=== PATIENT | male | born 1950 | race Caucasian/White ===

== ENCOUNTER 2017-07-29 01:26 | Inpatient (IN) | payer OTHER ==
[~2017-07-29] VITALS: Ht 182.9 cm; Wt 110.8 kg
[~2017-07-29 01:26] MED LIST: ATORVASTATIN CA20 M1 PO; LISINOPRIL-HCT1 EAC2 PO; METFORMIN HCL500 M3 PO
--- NOTE | 2017-07-29 09:52 | Operative Report ---
Operative/Inv Procedure Report Surgery Date: 07/29/17 Name of Procedure: Left total knee arthroplasty Pre-Operative Diagnosis: Primary osteoarthritis left knee Post-Operative Diagnosis: Same Estimated Blood Loss: less than 50ml Surgeon/Procedure Manager: Erwin CARRILLO,Sarthak Winters PAC Anesthesia: general endotracheal tube IV Fluids: See anesthesia record Implants: Striker triathlon posterior stabilize knee. Size 6 femur, size 6 tibia, 9 mm polyethylene insert and a 36 patellar button Drains: None Specimens: Bone to pathology Tourniquet: 50 minutes Complications: None Condition: Stable Operative Indication: Patient is a 59-year-old male with severe degenerative changes and osteoarthritis of the left knee. He has failed conservative treatment is indicated for left total knee arthroplasty. A skilled set hands was necessary provided by physician dental ceramist assistant Arthur Winters weighted with component assembly limb positioning and traction as well as retraction throughout the case. Operative/Procedure Note Note: Once informed consent was obtained and the correct limb was identified the patient brought to operative room placed on table supine position. After administration of general endotracheal anesthesia patient had a Hedrick catheter placed, thigh tourniquet placed and the left lower extremity is prepped and draped in usual sterile fashion. To begin the procedure standard midline incision was made for left total knee arthroplasty. Sharp dissection was carried down through the skin and subcutaneous tissue. A medial parapatellar arthrotomy was performed and the patella was everted and the fat pad is removed from the patellar tendon. Patellar thickness was measured to be 26 mm and 10 mm of bone was resected off the patella. Patella was then measured to be a 36 symmetric patella. The jig for the 36 patella was placed onto the patella and the lug holes were drilled. Patella was then retracted laterally and protected and Z retractors were placed to protect the collateral ligaments. Step drill was used to enter the intramedullary canal the femur. Distal femoral cutting guide was placed with a cut set for 10 of resection off the distal femur and a 6 valgus cut. Distal femoral cut was made without complication bone was passed off as specimen to pathology. The femur was then sized to be a size 6 femur. A size 6 4-in-1 cutting block was placed in the distal femur and the anterior, posterior and chamfer cuts were made without, patient. The box cut guide was then placed for size 6 femur and the box cut for posterior stabilized knee was performed. At this point the lateral medial menisci were resected sharply with a number #10 blade. Using a curved osteotome and curved curettes posterior osteophytes removed off the posterior femoral condyles. A Church elevator was then used to used to release some the posterior capsule due to the flexion contracture preoperatively. Attention was then turned to the tibial cut. Intramedullary canal was entered with a step drill and the intramedullary canal cutting guide was placed. 4 mm of bone was taken off the medial side or the affected side of the knee. This was passed off as specimen. The tibia sized to be a size 6 tibial tray. Reduction was done with a 6 tibial tray and a 6 femur and a 9 mm polyethylene trial insert. The knee had full extension and 110 of flexion. It was stable to varus and valgus stress at 0 and 60 with no mid flexion instability. The patella tracked nicely. Rotation of the tibial component was marked and the components removed. The tibial component was pinned in placed and the keel cut was made. At this point all components removed and the knee was pulse lavaged. The cement was mixed on the back table. The total knee components were then cemented in place with the tibial component cemented first followed by the femoral component and the patellar button. All excess cement was removed with curettes. A 9 mm trial insert was placed on the tibial tray and the knee was placed in full extension while the cement hardened. Once the cement hardened the knee was again taken through range of motion found to be stable with full extension. A 9 mm polyethylene insert was opened and locked onto the tibial tray. The tourniquet was released and the knee was pulse lavaged with sterile saline. Bleeding was stopped with electrocautery. The arthrotomy was then closed with #1 Vicryl interrupted sutures. The subcutaneous tissues were closed with #1 Vicryl and 2-0 Vicryl interrupted sutures. Skin was closed vero and a sterile dressing was applied. Patient was awakened and taken recovery in stable condition.
--- NOTE | 2017-07-29 12:24 | Cons- Medical ---
Joshua CARRILLO,Lola 07/29/17 1223: General Information and HPI Consulting Request Date of Consult: 07/22/17 Requested By: Erwin CARRILLO,Sarthak Hyde Reason for Consult: Post Op Source of Information: patient, family, old records Exam Limitations: no limitations History of Present Illness: Mr. Trinh is a 67-year-old gentleman with past medical history of hyperlipidemia, hisotry of severe osteoarthritis, esssential hypertension, questionable history of diabetes (with borderline elevated blood sugars) who was seen in PACU on 07/29 after undergoing left knee arthroplasty. During the time of our clinical interaction the patient was alert and oriented 3. He was able to answer questions appropriately and states that he was in no acute pain. States that he has been compliant on medications. Routinely follows up with his primary care physician Dr. Rose. He denies any changes to recent medications. States that his primary care physician as kept him on metformin 500 mg twice a day for questionable diagnosis of diabetes. At the time of our clinical interaction he denied any fever, chills, nausea, vomiting. He was pain-free and felt slightly lethargic owing to anesthesia. Unsure about any drug allergies stating that he may have had an adverse reaction to an anodyne medication although he is unable to mention which ones. He experienced GI Upset. Allergies/Medications Allergies: Uncoded Allergies: ? PAIN MED (VOMITING 07/13/17) Home Med List: Apixaban (Eliquis) 2.5 MG TABLET 2.5 MG PO BID dvt ppx Atorvastatin Calcium 20 MG TABLET 1 TAB PO DAILY CHOLESTEROL (Reported) Lisinopril/Hydrochlorothiazide (Lisinopril-Hctz 10-12.5 MG Tab) 10 MG-12.5 MG TABLET 1 TAB PO DAILY BP (Reported) Metformin HCl 500 MG TABLET 1 TAB PO BID DIABETES (Reported) Oxycodone HCl/Acetaminophen (Percocet 5-325 MG Tablet) 5 MG-325 MG TABLET 1-2 TAB PO Q4P PRN PAIN SCALE Current Medications: Current Medications Sig/Arron Start time Last Medication Dose Route Stop Time Status Admin Acetaminophen 0 .STK-MED ONE 07/29 708 DC PO Acetaminophen 650 MG ONCE 07/29 NR PO 07/29 2358 Celecoxib 400 MG ONCE 07/29 NR PO 07/29 2358 Dexamethasone 0 .STK-MED ONE 04/11 0708 DC .ROUTE Dexamethasone 10 MG ONCE 07/29 0000 NR IV 07/29 2358 Gabapentin 0 .STK-MED ONE 07/29 0709 DC PO Gabapentin 300 MG ONCE 07/29 0000 NR PO 07/29 2358 Oxycodone HCl 10 MG ONCE 07/29 0000 NR PO 07/29 2358 Ropivacaine 500 ML ONCE ONE 07/29 0900 AC ON-Q Ball 1 BAG INJ 07/31 0239 Scopolamine HBr 0 .STK-MED ONE 07/29 07 DC TOP Scopolamine HBr 1 PAT ONCE 07/29 0000 NR TOP 07/29 2358 Vancomycin HCl 1,500 MG ONCE 07/29 0000 NR Sodium Chloride 250 ML IV 07/29 2358 Review of Systems Review of Systems Constitutional: Reports: see HPI. Past History Surgical History Surgical History: Right knee arthroplasty Family History Relations & Conditions If Any: SISTER (Hypertension). Psychosocial History Where Do You Live? Home Services at Home: None Smoking Status: Smoker Current Stat n ETOH Use: occasional use, Occasional Illicit Drug Use: denies illicit drug use Functional Ability ADLs Independent: dressing, eating, toileting, bathing. Ambulation: independent IADLs Independent: shopping, housework, finances, food prep, telephone, transportation , medication admin. Exam & Diagnostic Data Last 24 Hrs of Vital Signs/I&O BP 129/69. Heart rate 60 Physical Exam General Appearance: well developed/nourished, no apparent distress, alert Head: atraumatic Eyes: Bilateral: PERRL, EOMI. Ears, Nose, Throat: normal pharynx Neck: normal inspection Respiratory: normal breath sounds, chest non-tender, no respiratory distress Cardiovascular: regular rate/rhythm Gastrointestinal: normal bowel sounds, soft, non-tender Back: normal inspection Extremities: normal inspection, no edema, Right Knee Surgical Scar Neurologic/Psych: no motor/sensory deficits, awake, alert, oriented x 3, senior recruiter II- XII nml as tested Cranial Nerves: normal hearing, normal speech, PERRL Last 24 Hrs of Labs/Mathew: NA Diagnostic Data EKG Results Pre operative EKG showed NSR Assessment/Plan Assessment/Plan Mr. Trinh is a 67-year-old gentleman with past medical history of hyperlipidemia, hypertension, questionable history of diabetes (with borderline elevated blood sugars) who was seen in PACU on 07/29/2017 after undergoing left knee arthroplasty. He will be managed on the floor for postsurgical intervention. Hypertension Post Op BP stable. Plan: Continue Lisinopril/HCTZ combo pill. Goal pressure below 140/90. Monitor BP Glucose Intolerance Has been on Metrofmin. Last HbA1c 6.4, 07/06/17 Plan: Cover patient with NovoLog sliding scale. Keep blood sugar below 150. If sugars remain uncontrolled will may consider addition of Levemir. Consistent carbohydrate Diet Consistent carbohydrate Diet Hyperlipidemia Continue Atorvastatin 20 mg Incentive Spirometer Patient is a full code. DVT prophylaxis at all times Thank you for consultation request we will continue to follow with you. Problem List: 1. Unilateral primary osteoarthritis, left knee 2. Hypertension Copies To: Rose CARRILLO,Ahsok Donovan Consult Acknowledgment - Thank you for your consult request. Darwin Rebollar MD 07/29/17 7591: Assessment/Plan Consult Acknowledgment - Thank you for your consult request. Attending MD Review Statement Attending Statement Attending MD Statement: examined this patient, discuss w/resident/PA/RECREATION FACILITY MANAGER, agreed w/resident/PA/RECREATION FACILITY MANAGER, reviewed EMR data (avail), amended to note Attending Assessment/Plan: The patient is a 67 yo male with h/o HL, glucose intolerance, essential HTN and OA who presented for elective left TKR for OA. He had previously had a right TKR in past. At the time of my exam he was lying comfortably in the PACU. He stated his pain was under good control. Denied any chest pain, dyspnea, or nausea/ abdominal discomfort. Physical Exam: VS: BP 129/69, P 60 HEENT: eyes- PERRLA, EOMI pat- moist mucosa w/o lesions Neck: no JVD/bruits Chest: clear Cor: RRR nl S1, S2 w/o murm Abd: BS+, soft, NT Ext: s/p left TKR, pulses 2+, no edema Neuro: alert & oriented x 3, non-focal exam Impression/Plan: #S/P Left TKR- for OA- doing well post operatively. Plan: As per orthopedics. #Essential HTN- BP stable. Plan: Continue Lisinopril/HCTZ. #Glucose Intolerance- on Metformin as OP. Hgb A1C as above. Plan: Will follow glucoscans and insulin sliding scale. #Hyperlipidemia- on Atorvastatin. Plan: Continue Atorvastatin.
--- NOTE | 2017-07-29 13:44 | Admission Core Measures ---
Acute Coronary Syndrome (CM) ACS Core Measures Acute Coronary Syndrome Diagnosis No Congestive Heart Failure (NEW) CHF Core Measures Congestive Heart Failure Diagnosis No Cerebrovascular Accident (NEW) CVA Core Measures CVA/TIA Diagnosis No Venous Thromboembolism VTE Core Betina (View Protocol) VTE Risk Factors Surgery No Mechanical VTE Prophylaxis d/t N/A MechProphylax Ordered No VTE Pharm Prophylaxis d/t NA PharmProphylax ordered Problem List As ranked by this Provider includes Assessment & Plan 1. Unilateral primary osteoarthritis, left knee HOME MEDS Home Med List Atorvastatin Calcium 20 MG TABLET 1 TAB PO DAILY CHOLESTEROL (Reported) Lisinopril/Hydrochlorothiazide (Lisinopril-Hctz 10-12.5 MG Tab) 10 MG-12.5 MG TABLET 1 TAB PO DAILY BP (Reported) Metformin HCl 500 MG TABLET 1 TAB PO BID DIABETES (Reported)
--- NOTE | 2017-07-29 13:47 | Patient Discharge Instructions ---
Discharge Instructions General Discharge Information You were seen/treated for: Left knee pain related to unilateral primary osteoarthritis You had these procedures: Left total knee replacement Watch for these problems: Increasing pain despite the use of pain medication Increasing redness, warmth or swelling Drainage of any type from incision Inability to bear weight on operative leg Persistent nausea and vomiting Fever greater than 101.5 degrees Do not soak the wound: Yes No bath, but you may shower: Yes Other wound care: Please keep wound clean and dry. No ointments or lotions of any type on or near incision at any time. No exceptions. Your dressing will be changed by your nurse on the second day after your surgery. Daily dry dressing changes are recommended each day thereafter. Do not soak your wound in a bath at any time until otherwise indicated by your surgeon. You may shower, please dry wound immediately after shower with a clean towel. Diet Continue normal diet: Yes Recommended Diet: Regular Activity Full Activity/No Limits: No Activity Self Limited: Yes Pounds, do NOT lift more than: 10 Acute Coronary Syndrome Inclusion Criteria At DC or during hospital stay patient has or had the following: ACS DIAGNOSIS No Discharge Core Measures Meds if any: Prescribed or Continued at Discharge Meds if any: NOT Prescribed or Continued at Discharge Congestive Heart Failure Inclusion Criteria At DC or during hospital stay patient has or had the following: CHF DIAGNOSIS No Discharge Core Measures Meds if any: Prescribed or Continued at Discharge Meds if any: NOT Prescribed or Continued at Discharge Cerebrovascular accident Inclusion Criteria At DC or during hospital stay patient has or had the following: CVA/TIA Diagnosis No Discharge Core Measures Meds if any: Prescribed or Continued at Discharge Meds if any: NOT Prescribed or Continued at Discharge Venous thromboembolism Inclusion Criteria VTE Diagnosis No VTE Type NONE VTE Confirmed by (Test) NONE Discharge Core Measures - Per Current guidelines, there needs to be overlap - treatment for the first 5 days of Warfarin therapy. - If discharged on Warfarin prior to 5 days of - overlap therapy, the patient will need to be - assessed for post discharge needs including - *Post discharge parental anticoagulation - *Warfarin and/or parental anticoagulation education - *Follow up date to check INR post discharge At least 5 days overlap therapy as Inpatient No Meds if any: Prescribed or Continued at Discharge Note: Overlap Therapy is Warfarin and Anticoagulant Meds if any: NOT Prescribed or Continued at Discharge
--- NOTE | 2017-07-29 13:49 | Surgical Discharge Summary ---
Visit Information Visit Dates Admission Date: 07/29/17 Discharge Date: 07/30/17 History of Present Illness Chief Complaint: Left knee pain related to unilateral primary osteoarthritis Medical History Influenza Vaccine: 01/09/10 Surgical History Pertinent Surgical History: non-contributory Psychosocial History Who Do You Live With? Son Services at Home: None What is Your Primary Language? Beninese Review of Systems: See H&P Hospital Course Course Attending Physician: Erwin CARRILLO,Sarthak Hyde Primary Care Physician: Ashok Rose MD Hospital Course: Patient was admitted to the hospital for an elective total joint replacement. The procedure was tolerated well and patient was transferred to a general surgical floor. Diet was advanced and tolerated, and the patient voided spontaneously. The patient was evaluated and treated by physical therapy. At the time of hospital discharge, the vital signs were stable, neurovascular status was intact, and pain was controlled with the use of oral pain medications. Allergies: Uncoded Allergies: ? PAIN MED (VOMITING 07/13/17) Disposition Summary Disposition Principal Diagnosis: Left knee unilateral primary osteoarthritis Additional Diagnosis: SP L TKA Discharge Disposition: home health services Discharge Instructions General Discharge Information Code Status: Full Code Patient's Diet: Regular, advance as tolerated Patient's Activity: WBAT Follow-Up Instructions/Appts: Follow up with Dr. Hood in two weeks from date of surgery. Please call office to arrange/confirm this appointment Medications at Discharge Discharge Medications: Continue taking these medications: Atorvastatin Calcium (Atorvastatin Calcium) 20 MG TABLET 1 Tablet ORAL DAILY Lisinopril/Hydrochlorothiazide (Lisinopril-Hctz 10-12.5 MG Tab) 10 MG-12.5 MG TABLET 1 Tablet ORAL DAILY Metformin HCl (Metformin HCl) 500 MG TABLET 1 Tablet ORAL TWICE DAILY Start taking the following new medications: Apixaban (Eliquis) 2.5 MG TABLET 2.5 Milligram ORAL TWICE DAILY Qty = 60 No Refills Oxycodone HCl/Acetaminophen (Percocet 5-325 MG Tablet) 5 MG-325 MG TABLET 1-2 Tablet ORAL EVERY 4 HOURS NEEDED as needed for PAIN SCALE Qty = 36 No Refills
--- NOTE | 2017-07-29 16:19 | PN- Orthopedic ---
Subjective Subjective: POC feeling good, awaiting bed assignment in pacu. no n/v, ovidio some po. no oob yet. +uo via ramirez. pain well controlled. no cp/sob Objective Vital Signs and I&Os see emr Physical Exam: gen- nad card- s1s2 rrr pulm- ctab abd- soft nt obese ext- lle dressed in prisca,cdi. onq in place. ice in place. palp dp, foot warm, gross sensate intact. gross dorsi/plantar flexion intact bl. calves soft nt bl , alps on. Assessment/Plan Assessment/Plan A- POD0 sp L TKR, stable, awaiting oob postop. P- prn pain meds oob, pt, wbat ramirez- dc in am dsg change pod2 onq in place home meds eliquis bid, alps cc3 diet, monitor fs appreciate medicine input dc planning will dw attending Core Measures Venous Thromboembolism VTE Risk Factors Surgery No Mechanical VTE Prophylaxis d/t N/A MechProphylax Ordered No VTE Pharm Prophylaxis d/t NA PharmProphylax ordered
[2017-07-29 17:11] VITALS: BP 142/78
[2017-07-29 21:00] VITALS: BP 120/70
[2017-07-29 23:00] VITALS: BP 122/70
[2017-07-30 03:07] VITALS: BP 118/66
[2017-07-30 06:59] VITALS: BP 110/70
--- NOTE | 2017-07-30 07:15 | PN- Medicine Consult ---
See Addendum Assessment/PlanMedical Consult Assessment/Plan Assessment: As Per Below Plan: Mr. Trinh is a 67-year-old gentleman with past medical history of hyperlipidemia, hypertension, questionable history of diabetes (with borderline elevated blood sugars) underwent left knee arthroplasty on 07/29/2017. Currently been managed on Gen. medical service. S/P LEFT Arthroplasty Post op doing well. Awaiting physical therapy consultation later today. Labs pending. Essential Hypertension Post Op BP stable. 110/70 Plan: Continue Lisinopril/HCTZ combo pill. Goal pressure below 140/90. Monitor BP Consider stopping fluids in the context of adequate by mouth intake. Glucose Intolerance FS, 141 Has been on Metrofmin. Last HbA1c 6.4, 07/06/17 Plan: Cover patient with NovoLog sliding scale. Keep blood sugar below 150. If sugars remain consistently elevated will may consider addition of Levemir. Consistent carbohydrate Diet Hyperlipidemia Continue Atorvastatin 20 mg Incentive Spirometer Patient is a full code. DVT prophylaxis On Eliquis Thank you for consultation request we will continue to follow with you. Subjective Subjective: Mr. Trinh was seen and examined this morning. Resting comfortably in bed. Denies any issues overnight. States he was able to get some rest and feels refreshed this morning. Also states that he was able to ambulate to the restroom and had no issues. Currently is pain-free. He has been tolerating by mouth intake well. He does have fluids running at 75 mL per hour. Denies any fever, chills, nausea, vomiting. Last bowel movement yesterday approximately midnight. Review of Systems Constitutional: Reports: see HPI. Objective Last 24 Hrs of Vital Signs/I&O Vital Signs Date Time Temp Pulse Resp B/P B/P Pulse O2 O2 Flow FiO2 Mean Ox Delivery Rate 07/30 0659 97.5 72 20 110/70 96 Room Air 07/30 0307 98.3 72 20 118/66 95 Room Air 07/29 2300 98.2 73 18 122/70 96 Room Air 07/29 2100 98.6 76 20 120/70 93 Room Air 07/29 1711 98.3 67 18 142/78 97 Room Air Intake & Output 07/30 1600 07/30 0800 07/30 0000 Intake Total 400 Output Total 700 900 Balance -700 -500 Intake, IV 300 Intake, Oral 100 Number 1 Bowel Movements Output, Urine 700 900 Patient 110.762 kg Weight Physical Exam General Appearance: well developed/nourished, no apparent distress, alert, awake Head: atraumatic Neck: normal inspection Cardiovascular: regular rate/rhythm Respiratory: normal breath sounds, chest non-tender Abdomen: normal bowel sounds, soft, non-tender Extremities: normal range of motion, no edema, Left Knee Wrapped in Bandage. Cooling pack Above. Neurologic/Psychiatric: awake, alert, oriented x 3 Current Medications: Current Medications Sig/Arron Start time Last Medication Dose Route Stop Time Status Admin Acetaminophen 650 MG ONCE 07/29 0000 DC PO 07/29 235 Apixaban 2.5 MG BID 07/30 1000 AC PO Atorvastatin Calcium 20 MG 1700 07/30 1700 AC PO Celecoxib 400 MG DAILY 07/30 1000 AC PO Celecoxib 400 MG ONCE 07/29 0000 DC PO 07/29 235 Dexamethasone 10 MG ONCE 07/29 0000 DC IV 07/29 235 Docusate Sodium 100 MG DAILY NEEDED PRN 07/29 1730 AC PO Gabapentin 300 MG ONCE 07/29 0000 DC PO 07/29 2359 Hydrochlorothiazide 12.5 MG DAILY 07/30 1000 AC PO Insulin Aspart 0 AT BEDTIME 07/29 2200 AC 07/29 SC 2115 Insulin Aspart 0 TIDAC 07/29 1700 AC 07/29 SC 1829 Lisinopril 10 MG DAILY 07/30 1000 AC PO Metformin HCl 500 MG BID 07/29 1000 AC 07/29 PO 2115 Morphine Sulfate 2 MG Q3P PRN 07/29 1730 AC IV Morphine Sulfate 4 MG Q3P PRN 07/29 1730 AC IV Ondansetron HCl 4 MG Q6P PRN 07/29 1730 AC IV Oxycodone HCl 10 MG ONCE 07/29 0000 DC PO 07/29 2359 Oxycodone/ 1 TAB Q4P PRN 07/29 1730 AC 07/30 Acetaminophen PO 0552 Oxycodone/ 2 TAB Q4P PRN 07/29 1730 AC Acetaminophen PO Polyethylene Glycol 17 GM DAILY NEEDED PRN 07/29 1730 AC PO Ropivacaine 500 ML ONCE ONE 07/29 0900 DC 07/29 ON-Q Ball 1 BAG INJ 07/31 0239 0900 Scopolamine HBr 1 PAT ONCE 07/29 0000 DC TOP 07/29 2359 Senna/Docusate Sodium 2 TAB AT BEDTIME NEED.. 07/29 1730 AC PO Sodium Chloride 1,000 ML .[id number] 07/29 1730 AC 07/30 IV 0059 Vancomycin HCl 1,500 MG ONCE ONE 07/29 1900 DC 07/29 Dextrose/Water 250 ML IV 07/29 2028 203 Vancomycin HCl 1,500 MG ONCE 07/29 0000 DC Sodium Chloride 250 ML IV 07/29 2359 Results Last 24 Hrs Lab/Mathew Results: Microbiology 07/29 0815 URINE ROUT: Urine Culture - RECD
[2017-07-30 08:56] LABS: ABSOLUTE BASOPHIL COUNT 0 /CUMM (0.0-0.2); ABSOLUTE EOSINOPHIL COUNT 0 /CUMM (0.0-0.7); ABSOLUTE GRANULOCYTE CT 11.6 /CUMM (1.4-6.5); ABSOLUTE LYMPH COUNT 0.9 /CUMM (1.2-3.4); ABSOLUTE MONOCYTE COUNT 1.4 /CUMM (0.10-0.60); BASOPHIL % 0 % (0.0-2.0); EOSINOPHIL % 0 % (0-5); HEMATOCRIT 29.8 % (42-52); MEAN CORPUSCULAR HGB 30.6 PG (27.0-31.0); MEAN CORPUSCULAR HGB CONC 33.8 G/DL (33.0-37.0); MEAN CORPUSCULAR VOLUME 90.4 FL (80.0-94.0); MEAN PLATELET VOLUME 8.5 FL (7.4-10.4); PLATELET COUNT 124 /CUMM (130-400); RBC DISTRIBUTION WIDTH 13.7 % (11.5-14.5); WHITE BLOOD CELL COUNT 13.8 /CUMM (4.8-10.8)
[2017-07-30 09:41] LABS: GRANULOCYTE % 83.8 % (42.2-75.2)
--- NOTE | 2017-07-30 09:59 | PN- Orthopedic ---
Subjective Subjective: Minimal pain, performed well with physical therapy, no complaints, no acute events overnight, would like to be discharged home today Objective Vital Signs and I&Os Vital Signs Date Time Temp Pulse Resp B/P B/P Pulse O2 O2 Flow FiO2 Mean Ox Delivery Rate 07/30 0659 97.5 72 20 110/70 96 Room Air 07/30 0307 98.3 72 20 118/66 95 Room Air 07/29 2300 98.2 73 18 122/70 96 Room Air 07/29 2100 98.6 76 20 120/70 93 Room Air 07/29 1711 98.3 67 18 142/78 97 Room Air Intake & Output 07/30 1600 07/30 0800 07/30 0000 07/29 1600 07/29 0800 07/29 0000 Intake Total 700 400 Output Total 750 900 Balance -50 -500 Intake, IV 600 300 Intake, Oral 100 100 Number 1 Bowel Movements Output, Urine 750 900 Patient 244 lb Weight Physical Exam: Well-developed well-nourished no apparent distress. HEENT: Atraumatic, extraocular motion intact Neck: Supple, no lymphadenopathy Respiratory: No respiratory distress Extremities: No edema On-Q was removed LEFT lower extremity dressing in place, Dressing clean dry and intact, a supply of Range of motion is 0-90. Compression wrap in place. ALPS in place Neurovascularly intact distally Bilateral calves are supple, nontender. Neuro: Alert and oriented x3 Psych: Mood affect normal, normal memory normal judgment. Skin: Warm and dry, no rash on exposed skin Results Last 48 Hours of Labs: Laboratory Tests 07/30 0755 Chemistry Sodium (137 - 145 mmol/L) 140 Potassium (3.5 - 5.1 mmol/L) 4.1 Chloride (98 - 107 mmol/L) 105 Carbon Dioxide (22 - 30 mmol/L) 24 Anion Gap (5 - 16) 10 BUN (9 - 20 mg/dL) 24 H Creatinine (0.7 - 1.2 mg/dL) 0.9 Estimated GFR (>60 ml/min) > 60 BUN/Creatinine Ratio (7 - 25 %) 26.7 H Hematology CBC w Diff NO MAN DIFF REQ WBC (4.8 - 10.8 /CUMM) 13.8 H RBC (4.70 - 6.10 /CUMM) 3.30 L Hgb (14.0 - 18.0 G/DL) 10.1 L Hct (42 - 52 %) 29.8 L MCV (80.0 - 94.0 FL) 90.4 MCH (27.0 - 31.0 PG) 30.6 MCHC (33.0 - 37.0 G/DL) 33.8 RDW (11.5 - 14.5 %) 13.7 Plt Count (130 - 400 /CUMM) 124 L MPV (7.4 - 10.4 FL) 8.5 Gran % (42.2 - 75.2 %) 83.8 H Lymphocytes % (20.5 - 51.1 %) 6.3 L Monocytes % (1.7 - 9.3 %) 9.9 H Eosinophils % (0 - 5 %) 0 Basophils % (0.0 - 2.0 %) 0 Absolute Granulocytes (1.4 - 6.5 /CUMM) 11.6 H Absolute Lymphocytes (1.2 - 3.4 /CUMM) 0.9 L Absolute Monocytes (0.10 - 0.60 /CUMM) 1.4 H Absolute Eosinophils (0.0 - 0.7 /CUMM) 0 Absolute Basophils (0.0 - 0.2 /CUMM) 0 Assessment/Plan Assessment/Plan Postop day #2 status post left total knee arthroplasty Patient cleared physical therapy and would like to be discharged home today. His vital signs are stable, laboratory values are acceptable, On-Q was removed. We will discuss the case management setting up visiting nurse for him for tomorrow for dressing change and physical therapy at home. Continue Eliquis for DVT prophylaxis 2 weeks follow-up Core Measures Venous Thromboembolism VTE Risk Factors Surgery No Mechanical VTE Prophylaxis d/t N/A MechProphylax Ordered No VTE Pharm Prophylaxis d/t NA PharmProphylax ordered
[2017-07-30] MEDS ORDERED: PERCOCET 5-3251 EACH PO (10:01)
[2017-07-30] MEDS ORDERED: ELIQUIS2.5 M1 PO (10:01)
[2017-07-30 10:51] VITALS: BP 122/60
== END 2017-07-30 12:50 | disposition home health service (06) | DRG 470 ==
LOC: SDA 01:26 → ENRESERV 15:12 → ENTRNSPT 16:36 → 2NA 17:12 → CMPTRNSPT 18:11 → ENPENDDIS 07-30 10:19 → ENTRNSPT 07-30 12:36 → EDTRNSPTSTS 07-30 12:40 → 2NA 07-30 12:50 → CMPTRNSPT 07-30 12:59
PROVIDERS: Physician Assistant Surgical
PROC: 3E0T3BZ Introduction of Anesthetic Agent into Peripheral Nerves and Plexi, Percutaneous Approach (ICD-10-PCS; principal; 2017-07-29)
PROC: 0SRD0J9 Replacement of Left Knee Joint with Synthetic Substitute, Cemented, Open Approach (ICD-10-PCS; principal; 2017-07-29)
DX: M17.12 Unilateral primary osteoarthritis, left knee (principal); E11.9 Type 2 diabetes mellitus without complications; I10 Essential (primary) hypertension; E78.5 Hyperlipidemia, unspecified; Z79.84 Long term (current) use of oral hypoglycemic drugs; Z96.652 Presence of left artificial knee joint
CPT/HCPCS: 2NASP; 36415; 36592; 82436; 87086; 97110-GO; 97116-GO; 97161-GP; 97530-GO; C1713; C9399; J1100; J1885; J2405; J2795; J3370; J7040; J7060